=== PATIENT | male | born 1955 | race Caucasian/White ===

== ENCOUNTER → 2018-02-21 | Outpatient (CLI) | payer OTHER ==
[~2018-02-21] MED LIST: Ambien PO; CARAFATE1 GM PO; LOPRESSOR25 MG PO; Lanoxin,Digitek PO; PEPTO BISMOL240 ML PO; Percocet 5/325,Endoc PO; THERAGRAN1 TABLET PO; TUMS500 MG PO
== END | disposition home or self-care (01) ==
LOC: RES 08:42
DX: Z02.71 Encounter for disability determination (principal)
CPT/HCPCS: 94060; 94729; 94760